=== PATIENT | female | born 1945 | race Caucasian/White ===

== ENCOUNTER 2017-09-18 12:21 | Emergency (ER) | payer MEDICARE, OTHER ==
[~2017-09-18 12:21] MED LIST: ASPI325T PO; LEVO.125 PO; TAB-TAB PO; VYTO10TA29 PO; ZITH250T PO
[2017-09-18 12:35] VITALS: BP 157/72; PULSE 85; RESP 16; TEMP 98; O2SAT 96
[2017-09-18] MEDS ORDERED: ASPI-183 PO (12:51)
[2017-09-18] MEDS ORDERED: ZOCO10TA PO (12:51)
[2017-09-18] MEDS ORDERED: GLIP10TA6 PO (12:51)
[2017-09-18] MEDS ORDERED: LEVO.125 PO (12:51)
[2017-09-18] MEDS ORDERED: MULTTAB67 PO (12:51)
[2017-09-18] MEDS ORDERED: METF1000 PO (12:51)
--- NOTE | 2017-09-18 13:52 | PD ---
HPI Chief Complaint: Cold / Flu Symptoms Time Seen by Provider: :18 Travel History International Travel<30 days: No Contact w/Intl Traveler<30days: No Traveled to known affect area: No History of Present Illness HPI 72-year-old female presents to the emergency room for evaluation of sore throat and body aches that started last night. Her is sick with similar symptoms for the past week. She has associated mild cough, congestion. She has been taking [id number] medications with mild relief in symptoms. Denies any fever, chills, nausea, or vomiting. She is able to tolerate oral intake. History of hypothyroidism, hypercholesterolemia, diabetes. PFSH Past Medical History High Cholesterol: Yes Diabetes: Yes Patient Takes Glucophage: Yes Diminished Hearing: No Immunizations Current: Yes Thyroid Disease: Yes Tetanus Vaccination: Unknown ?: Not Menopausal: Yes Social History Alcohol Use: No Tobacco Use: No Substance Use: No Allergies-Medications (Allergen,Severity, Reaction): Coded Allergies: No Known Allergies (Verified Adverse Reaction, Unknown, 09/18/17) Reported Meds & Prescriptions Reported Meds & Active Scripts Active Reported Multiple Vitamin 1 Tab 1 Tab PO DAILY Zocor (Simvastatin) 10 Mg Tab 10 Mg PO DAILY Glipizide 10 Mg Tab 10 Mg PO DAILY Take 30 minutes before a meal Metformin (Metformin HCl) 1,000 Mg Tab 1,000 Mg PO BIDPC Synthroid (Levothyroxine Sodium) 125 Mcg Tab 125 Mcg PO DAILY Aspirin 325 Mg Tab 325 Mg PO DAILY Review of Systems Except as stated in HPI: all other systems reviewed are Neg Physical Exam Narrative GENERAL: Well-nourished, well-developed female in no acute distress. Afebrile. Ambulatory. SKIN: Focused skin assessment warm/dry. HEAD: Normocephalic. EYES: No scleral icterus. No injection or drainage. ENT: Mucosa pink and moist. Moderate erythema without edema or exudates. No uvular edema. No uvular, palatal, or tonsillar deviation. Airway patent. Nasal turbinates appear normal without nasal blood, purulent drainage or septal hematoma. EARS: Bilateral pinnae and external canals appear within normal limits. Bilateral tympanic membranes without erythema, dullness or perforation. NECK: Supple, trachea midline. No JVD or lymphadenopathy. CARDIOVASCULAR: Regular rate and rhythm without murmurs, gallops, or rubs. RESPIRATORY: Breath sounds equal bilaterally. No accessory muscle use. No crackles, rales, wheezes, or rhonchi. Data Data Last Documented VS Vital Signs Date Time Temp Pulse Resp B/P (MAP) Pulse Ox O2 Delivery O2 Flow Rate FiO2 09/18/17 12:35 98.0 85 16 157/72 (100) 96 Orders Orders Influenzae A/B Antigen (09/18/17 13:34) Group A Rapid Strep Screen (09/18/17 13:34) Strep Culture (Group A) (09/18/17 13:45) MDM Medical Decision Making Medical Screen Exam Complete: Yes Emergency Medical Condition: Yes Medical Record Reviewed: Yes Differential Diagnosis URI, pneumonia, influenza Narrative Course 72-year-old female presents to the emergency room for evaluation of cold symptoms since last night. Symptoms include sore throat congestion, cough, and body aches. is sick with similar symptoms. Physical exam is reassuring. Vital signs stable. Lung sounds clear and equal bilaterally. There is mild to moderate erythema of the pharynx without edema or exudates. Rapid strep and influenza are negative. This is viral URI. Patient told to follow-up with her primary care physician or return for worsening symptoms. She understands and agrees to plan. Diagnosis Primary Impression: Viral URI Referrals: Primary Care Physician Additional Instructions: Continue [id number] cough and cold medications. Follow-up with PCP. Return for worsening symptoms. Med/Other Pt SpecificInfo: Prescription(s) given Disposition: DISCHARGE HOME Condition: Stable Asia Biggs Sep 18, 2017 13:51
== END 2017-09-18 15:22 | disposition home or self-care (01) ==
LOC: PHEFT 12:21
DX: J06.9 Acute upper respiratory infection, unspecified (principal); E78.00 Pure hypercholesterolemia, unspecified; E11.9 Type 2 diabetes mellitus without complications; E03.9 Hypothyroidism, unspecified; Z79.84 Long term (current) use of oral hypoglycemic drugs
CPT/HCPCS: 87081; 87804; 87880; 99283